=== PATIENT | male | born 1975 ===

== ENCOUNTER 2021-12-21 06:53 | Outpatient (CLI) | payer OTHER ==
--- NOTE | 2021-12-21 10:04 | Ultrasound Report ---
PROCEDURE: Testicle INDICATIONS: SCROTAL PAIN TECHNIQUE: Real-time scanning was performed of the scrotum and testicles, with image documentation. Color and p ulse Doppler interrogation was performed of both testicles. COMPARISON: None. FINDINGS: Right: Testicle is normal in size at 4 x 3.1 x 2 cm, and homogenous in echotexture. Epididymis is n ormal in overall size and morphology. Small epididymal head cyst measuring 0.3 cm. No hydrocele or va ricoceles. Overlying scrotal skin is normal in thickness. Left: Testicle is normal in size at 4.4 x 3 x 2.2 cm, and homogeneous in echotexture. Epididymis is normal in overall size and morphology. No hydrocele. Varicocele is present. Overlying scrotal skin is normal in thickness. Doppler: Color and pulse Doppler demonstrate normal and symmetric arterial flow in both testicles. IMPRESSION: 1. Blood flow in the testicles appears symmetric. No hyperemia to suggest epididymoorchitis. 2. No testicular mass. 3. Left varicocele. Reviewed by: Monico Ochoa MD on 12/21/2021 10:03 AM PDT Approved by: Monico Ochoa MD on 12/21/2021 10:03 AM PDT Station ID: [id number]
== END 2021-12-21 06:54 | disposition home or self-care (01) ==
LOC: DI 06:53
PROVIDERS: ATTEND Physician Assistant Medical
DX: N50.82 Scrotal pain (principal); I86.1 Scrotal varices

== ENCOUNTER 2022-06-14 13:45 | Outpatient (CLI) | payer OTHER ==
--- NOTE | 2022-06-14 15:16 | MRI Report ---
PROCEDURE: MRI brain without contrast INDICATIONS: HEADACHE TECHNIQUE: Noncontrast axial T1 spin echo, axial T2 fast spin echo, sagittal and axial FLAIR, coronal T2 fast sp in echo, axial gradient echo, axial diffusion and ADC through the brain. COMPARISON: None. FINDINGS: Image quality: Excellent. CSF Spaces: Basal cisterns are patent. No extra-axial fluid collections. Ventricles are normal in size and shape. Brain: No intracranial masses or hemorrhage. Callaahn/white matter interface is normal. Brainstem appe ars normal. Diffusion-weighted images demonstrate no acute infarct. Nonspecific white matter hyperin tensities in the frontal lobes measure less than 5 mm probably reflect chronic ischemic change. Norm al intravascular flow voids are present. Skull and face: Calvarium has normal marrow signal. Orbits appear normal. Sinuses: Small right maxillary sinus retention cyst, subcentimeter. Remainder of the paranasal sinuse s are clear IMPRESSION: Mild nonspecific white matter hyperintensities most consistent with microvascular chronic ischemic ch aki. Reviewed by: Charles Avila MD on 06/14/2022 2:14 PM [place] Approved by: Charles Avila MD on 06/14/2022 2:14 PM AKST Station ID: [id number]
== END 2022-06-14 13:46 | disposition home or self-care (01) ==
LOC: DI 13:45
PROVIDERS: ATTEND Internal Medicine
DX: R51.9 Headache, unspecified (principal)

== ENCOUNTER 2022-08-09 07:31 | Day surgery (SDC) | payer OTHER ==
[2022-08-09] MEDS ORDERED: LACTATED RINGERS 1,000 ML IV ONE ×2 (07:33→09:18)
--- NOTE | 2022-08-09 08:10 | ANESTHESIA ---
Pre-Anesthesia VS, & Labs - Diagnosis screening - Procedure colonoscopy Vital Signs: Temp Pulse Resp BP Pulse Ox O2 Flow Rate 36.1 C L 79 16 137/94 H 98 08/09/22 07:34 08/09/22 07:34 08/09/22 07:34 08/09/22 07:34 08/09/22 07:34 Height: 5 ft 11 in Weight (kg): 88 kg Body Mass Index: 27.0 BMI Classification: Overweight - NPO >8 hours Home Medications and Allergies Home Medications: Ambulatory Orders Acyclovir 1 tab PO BID 08/08/22 Acyclovir 1 tab PO BID 08/08/22 Allergies/Adverse Reactions: Allergies Allergy/AdvReac Type Severity Reaction Status Date / Time No Known Drug Allergies Allergy Verified 08/08/22 13:05 Anes History & Medical History - Anesthetic History Anesthesia Complications: reports: No previous complications Family history of Anesthesia Complications: Denies Family history of Malignant Hyperthermia: Denies - Medical History Cardiovascular: reports: None, Other (occasional PVCs) Pulmonary: reports: None Gastrointestinal: reports: None Urinary: reports: None Neuro: reports: None Musculoskeletal: reports: None Endocrine/Autoimmune: reports: None Blood Disorders: reports: None Skin: reports: Other Smoking Status: Never smoker Psychosocial: reports: Alcohol (3x/week) History of Cancer?: No - Surgical History General: reports: Cholecystectomy Exam General: Alert, Oriented x3, Cooperative Dental: WNL Mouth Openin Fingerbreadth Neck Mobility: Normal Mallampati classification: I Thyromental Distance: 4-6 cm Respiratory: Lungs clear Cardiovascular: Regular rate Plan Anesthesia Type: General, Total IV Consent for Procedure(s) Verified and Reviewed: Yes Code Status: Attempt Resuscitation ASA classification: 2-Mild systemic disease Is this case an emergency?: No
[2022-08-09] MEDS ORDERED: PROPOFOL 500 MG/50 ML 500 MG/50 ML VIAL ONE (08:14)
[2022-08-09] MEDS ORDERED: LIDOCAINE-PF 2% 10 ML AMP SUBQ ONE (08:14)
[2022-08-09] MEDS ORDERED: PROPOFOL 200 MG/20 ML VIAL IVP ONE (09:11)
[2022-08-09 09:38] VITALS: BP 123/83
--- NOTE | 2022-08-09 14:53 | ANESTHESIA POST OP EVALUATION ---
Anesthesia Post Eval - Post Anesthesia Eval Vitals: Last Vital Signs Temp 36.0 C L 08/09/22 09:38 Pulse 70 08/09/22 09:38 Resp 16 08/09/22 09:38 BP 123/83 H 08/09/22 09:38 Pulse Ox 100 08/09/22 09:38 O2 Flow Rate CV Function Including HR & BP: Stable Pain Control: Satisfactory Nausea & Vomiting: Negative Mental Status: Baseline Respiratory Status: Airway Patent Hydration Status: Satisfactory Anesthesia Complications: None
== END 2022-08-09 07:32 | disposition home or self-care (01) ==
LOC: SDS 07:31
PROVIDERS: ATTEND Surgery
DX: Z12.11 Encounter for screening for malignant neoplasm of colon (principal)
CPT/HCPCS: 45378; J7120